=== PATIENT | male | born 1975 | race Caucasian/White ===

== ENCOUNTER 2017-01-16 18:29 | Emergency (ER) | payer SELFPAY ==
[~2017-01-16] VITALS: Ht 190.5 cm; Wt 89.8 kg
== END 2017-01-16 20:26 | disposition left against medical advice (07) ==
LOC: ED 18:29
DX: F10.10 Alcohol abuse, uncomplicated (principal); F17.200 Nicotine dependence, unspecified, uncomplicated; Z53.21 Procedure and treatment not carried out due to patient leaving prior to being seen by health care provider; Z98.890 Other specified postprocedural states